=== PATIENT | female | born 2000 | race Native Hawaiian/Other Pacific Islander ===

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

== ENCOUNTER 2022-02-16 23:58 | Emergency (ER) | payer OTHER ==
[~2022-02-16] VITALS: Ht 170.2 cm; Wt 58.1 kg
[~2022-02-16 23:58] MED LIST: LAMICTAL25 MG PO; PROZAC10 MG PO; RISP2TAB2 PO
[2022-02-17 00:56] LABS: POTASSIUM 3.7 mmol/L (3.6-5.2)
[2022-02-17 00:58] LABS: PLATELET COUNT 349 K/uL (152-353)
[2022-02-17 07:00] VITALS: TEMP 97.9
[2022-02-17 09:45] VITALS: BP 107/75
== END 2022-02-17 15:53 | disposition still patient (30) ==
LOC: ED 23:58
PROVIDERS: Emergency Medicine
DX: F20.0 Paranoid schizophrenia (principal); F31.89 Other bipolar disorder; F41.8 Other specified anxiety disorders; R45.1 Restlessness and agitation; Z20.822 Contact with and (suspected) exposure to COVID-19
CPT/HCPCS: 36415; 80053; 80143; 80179; 80307; 80320; 81002; 81025; 84443; 85027; 87635; 93005; 96360; 96361; 96372; 99285; J2060; U0003